=== PATIENT | male | born 1945 | race Caucasian/White ===

== ENCOUNTER 2017-05-08 08:41 | Day surgery (SDC) | payer MEDICARE, OTHER ==
[~2017-05-08] VITALS: Ht 195.6 cm; Wt 114.7 kg
[2017-05-08 09:33] VITALS: BP 140/88; PULSE 65; TEMP 97.5
[2017-05-08 10:20] VITALS: BP 131/88; PULSE 61; TEMP 97.6
[2017-05-08 10:35] VITALS: BP 119/80; PULSE 67
[2017-05-08 10:50] VITALS: BP 117/86; PULSE 67
[2017-05-08 11:05] VITALS: BP 127/87; PULSE 67
== END 2017-05-08 11:10 | disposition home or self-care (01) ==
LOC: SDCO 08:41
DX: Z12.11 Encounter for screening for malignant neoplasm of colon (principal)
CPT/HCPCS: J2250; J3010; J7030